=== PATIENT | female | born 2000 | race Caucasian/White ===

== ENCOUNTER 2019-08-29 15:55 | Emergency (ER) | payer BC, SELFPAY ==
[~2019-08-29] VITALS: Ht 157.5 cm; Wt 58.2 kg
[2019-08-29 15:56] VITALS: BP 118/72
[2019-08-29 16:36] LABS: BASO # 0.1 10^3/uL (0.0-0.2); BASO % 0.7 % (0.0-1.0); EOS # 0.2 10^3/uL (0.0-0.5); EOS % 2.7 % (0.0-3.0); HEMATOCRIT 41.7 % (36.0-47.0); HEMOGLOBIN 14.5 g/dl (12.0-15.5); LYMPH # 2.2 10^3/uL (1.5-5.0); LYMPH % 32.2 % (24.0-44.0); MEAN CORPUSCULAR HEMOGLOBIN 29.8 pg (27.0-33.0); MEAN CORPUSCULAR HGB CONC 34.8 g/dl (32.0-36.5); MEAN CORPUSCULAR VOLUME 85.6 fl (80.0-96.0); MONO # 0.5 10^3/uL (0.0-0.8); MONO % 7.8 % (0.0-5.0); NEUTROPHILS # 3.9 10^3/uL (1.5-8.5); NEUTROPHILS % 56.3 % (36.0-66.0); PLATELET COUNT, AUTOMATED 233 10^3/uL (150-450); RED BLOOD COUNT 4.87 10^6/uL (4.00-5.40)
--- NOTE | 2019-08-30 10:22 | REP ---
PELVIC ULTRASOUND: Real-time sonographic evaluation of pelvis performed utilizing transabdominal and endovaginal technique. Urinary bladder is empty. Uterus measures 8.2 x 3.6 x 4.4 cm. Endometrial thickness is 8 mm. There is no endometrial fluid collection. Ovaries are normal in size and echotexture, right ovary measuring 3.2 x 1.9 x 2.2 cm and left ovary 3.7 x 1.5 x 2.0 cm. There is no adnexal mass or free fluid. There is no evidence of ovarian torsion with duplex Doppler evaluation. IMPRESSION: Negative pelvic ultrasound. No gestational sac seen in the endometrial canal. Endometrium is 8 mm. No mass or free fluid. Electronically Signed by Jose Chanel MD 08/30/2019 11:55 A
== END 2019-08-29 17:20 | disposition home or self-care (01) ==
LOC: M ED 15:55
DX: O20.0 Threatened abortion (principal); Z91.018 Allergy to other foods

== ENCOUNTER → 2019-08-31 | Outpatient (CLI) | payer BC | LOC: M LAB 15:20 | PROVIDERS: ATTEND Emergency Medicine | DX: R10.2 Pelvic and perineal pain (principal) ==